=== PATIENT | male | born 1975 ===

== ENCOUNTER 2016-12-11 11:35 | Observation (INO) | payer OTHER ==
[2016-12-11 11:43] VITALS: BMI 32.8
[2016-12-11] MEDS ORDERED: Iohexol 240 (50 ml) PO ONE (12:39)
[2016-12-11] MEDS ORDERED: Iohexol 240 (50 ml) ONE (12:43)
[2016-12-11] MEDS ORDERED: Sodium Chloride 0.9% 1,000 ML IV SCH ×2 (12:45→13:00)
--- NOTE | 2016-12-11 12:45 | ED PDOC ---
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 denies: Fever, Chills , Diarrhea, Constipation Alleviating Factors: None Last Bowel Movement: Today (normal) Additional History Per: Patient <Shnaia Hector - Last Filed: 12/11/16 18:18> <Mary Nava - Last Filed: 12/11/16 19:07> Time Seen by Provider: 12/11/16 12:26 Chief Complaint (Nursing): Abdominal Pain Additional Complaint(s): 41 yo M with PMH of HTN and CKD on HD presents with c/o diffuse abdominal pain that began yesterday after eating a spicy meal. Pt states pain slowly progressed and then began to have N/V. 4 episodes of nonbloody nonbilious vomiting. No diarrhea. Last BM this morning - normal. Pt did not eat dinner last night due to pain and nausea. Denies blood in stool. Denies fever, chills, chest pain, SOB. No recent travel or ill contacts. Nephro: Dr. Julian Garrett HD schedule MWF (pt had HD yesterday) (Shania Hector) Supervising Attending Note - Attestation: I have personally seen and examined this patient.: Yes I have fully participated in the care of the patient.: Yes I have reviewed all pertinent clinical information: Yes <Mary Nava - Last Filed: 12/11/16 19:07> Past Medical History Reviewed: Historical Data, Nursing Documentation, Vital Signs - Medical History PMH: Depression, Diverticulitis (5years back), HTN, End Stage Renal Disease, Chronic Kidney Disease Denies: HIV - Surgical History Surgical History: Appendectomy (X3 B/O Complications) Other surgeries: laparotomy, colostomy and reversal - Family History Family History: States: Unknown Family Hx - Living Arrangements Living Arrangements: With Family <Shania Hector - Last Filed: 12/11/16 18:18> <Mary Nava F - Last Filed: 12/11/16 19:07> Vital Signs: Last Vital Signs Temp 98 F 12/11/16 11:42 Pulse 103 H 12/11/16 11:42 Resp BP 132/97 H 12/11/16 11:42 Pulse Ox 97 12/11/16 18:20 - Home Medications Home Medications: Ambulatory Orders Medication Instructions Recorded RX: Calcium Acetate [Phoslo] 3 tab PO TID #0 tab 05/13/16 RX: Escitalopram [Lexapro] 10 mg PO DAILY #0 tab 05/13/16 RX: Esomeprazole Magnesium [Nexium] 40 mg PO DAILY #7 capsule.dr 05/13/16 RX: Folic Acid 1 mg PO DAILY #0 tab 05/13/16 RX: Metoprolol Tartrate [Lopressor] 25 mg PO DAILY #0 tab 05/13/16 RX: Zolpidem [Ambien] 5 mg PO HS #0 tab 05/13/16 RX: amLODIPine [Norvasc] 5 mg PO DAILY #0 tab 05/13/16 RX: hydroCHLOROthiazide [Microzide] 12.5 mg PO BID #0 cap 05/13/16 - Allergies Allergies/Adverse Reactions: Allergies Allergy/AdvReac Type Severity Reaction Status Date / Time No Known Allergies Allergy Verified 11/28/14 17:02 Review of Systems Constitutional: Negative for: Fever, Chills Cardiovascular: Negative for: Chest Pain Respiratory: Negative for: Cough, Shortness of Breath Gastrointestinal: Positive for: Nausea, Vomiting, Abdominal Pain. Negative for : Diarrhea, Constipation, Hematochezia, Hematemesis Genitourinary Male: Negative for: Dysuria, Frequency, Hematuria <Shania Hector - Last Filed: 12/11/16 18:18> Physical Exam - Reviewed Nursing Documentation Reviewed: Yes Vital Signs Reviewed: Yes - Physical Exam Appears: Positive for: Non-toxic, Uncomfortable Head Exam: Positive for: NORMAL INSPECTION Skin: Positive for: Normal Color, Warm, Dry. Negative for: Diaphoresis Eye Exam: Positive for: Normal appearance Neck: Positive for: Normal, Painless ROM, Supple Cardiovascular/Chest: Positive for: Tachycardia. Negative for: Irregularly Irregular Respiratory: Positive for: Normal Breath Sounds Gastrointestinal/Abdominal: Positive for: Bowel Sounds (+in all quadrants), Soft , Tenderness (diffuse tenderness, with +Torres's sign), Guarding, Other (RLQ, LLQ and midline scars) Extremity: Positive for: Other (LUE with patent AV fistula (+ thrill)). Negative for: Pedal Edema, Calf Tenderness Neurologic/Psych: Positive for: Alert, Oriented <Shania Hector - Last Filed: 12/11/16 18:18> - Laboratory Results Result Diagrams: 12/11/16 13:10 12/11/16 13:10 - ECG O2 Sat by Pulse Oximetry: 97 <Shania Hector - Last Filed: 12/11/16 18:18> - Laboratory Results Result Diagrams: 12/11/16 13:10 12/11/16 13:10 - Physician Consult Information Physician Contacted: Dang Hermos[place] <Mary Nava - Last Filed: 12/11/16 19:07> - Progress ED Course And Treament: CBC CMP Lipase NS 250ml bolus Pepcid 20mg IV stat Zofran 4mg IV stat Morphine 2mg IV stat CT abd/pelvis with PO contrast only Reeval 5:15pm Pt reevaluated - states pain improved but still present, diffusely. Had 2 episodes of diarrhea, nonbloody. CT scan reviewed - Mechanical SBO as a result of right parasagittal ventral hernia containing a loop of small bowel. Spoke with Surgery senior analytic consultant - Dr. Gruber. Requested lactate level. residential program worker to come evaluate pt. 6:15pm residential program worker spoke with Dr. Gruber. Spoke to Hospitalist, Dr. Goff for admission. (Shania Hector) - Physician Consult Information Outcome Of Conversation: Will evaluate patient tomorrow. (Mary Nava) Medical Decision Making <Shania Hector - Last Filed: 12/11/16 18:18> <Mary Nava - Last Filed: 12/11/16 19:07> Medical Decision Makin yo with mechanical SBO. Admit to Hospitalist with Surgical consult. (Mary Nava) Disposition - Patient ED Disposition Is Patient to be Admitted: Yes - Disposition Disposition Time: 18:20 <Shania Hector - Last Filed: 12/11/16 18:18> <Mary Nava - Last Filed: 12/11/16 19:07> - Clinical Impression Clinical Impression: Small bowel obstruction - Disposition Condition: STABLE
[2016-12-11] MEDS ORDERED: Sodium Chloride 0.9% 250 ML IV SCH (13:00)
[2016-12-11 13:24] LABS: BASO # 0.1 K/uL (0.0-0.2); BASO % 0.5 % (0.0-2.0); EOS # 0.1 K/uL (0.0-0.7); EOS % 0.9 % (0.0-4.0); HEMATOCRIT 44.3 % (35.0-51.0); LYMPH # 1.2 K/uL (1.0-4.3); LYMPH % 9.1 % (20.0-40.0); MEAN CORPUSCULAR HEMOGLOBIN 31.3 pg (27.0-31.0); MEAN PLATELET VOLUME 9.4 fl (7.2-11.7); MONO # 1.1 K/uL (0.0-0.8); MONO % 8.4 % (0.0-10.0); NEUT # 10.5 K/uL (1.8-7.0); NEUT % 81.1 % (50.0-75.0); NRBC % 0.1 % (0.0-0.0); PLATELET COUNT 249 K/uL (130-400); RED CELL DISTRIBUTION WIDTH 15.3 % (11.5-14.5); WHITE BLOOD COUNT 12.9 K/uL (4.8-10.8)
[2016-12-11 13:37] LABS: ALB/GLOB RATIO 1.1 (1.0-2.1); BILIRUBIN,TOTAL 1.3 mg/dl (0.2-1.3); CALCIUM 10.8 mg/dL (8.4-10.2); TOTAL PROTEIN 10.3 G/DL (6.3-8.2)
[2016-12-11 14:32] LABS: EOSINOPHIL 1 % (0-7); NEUTROPHIL 82 % (42-75); TOTAL CELLS COUNTED 100
--- NOTE | 2016-12-11 16:53 | CT ---
PROCEDURE: CT Abdomen and Pelvis without intravenous contrast HISTORY: abdominal pain, N/V, hx of multiple abdominal surg COMPARISON: 12/05/2019 52 TECHNIQUE: Without contrast.. Contrast Dose: 0 Radiation dose: Total exam DLP = 1059.05 mGy-cm. This CT exam was performed using one or more of the following dose reduction techniques: Automated exposure control, adjustment of the mA and/or kV according to patient size, and/or use of iterative reconstruction technique. FINDINGS: LOWER THORAX: Unremarkable. LIVER: Mild hepatomegaly. Smooth contour. . Diffusely diminished attenuation consistent with fatty infiltration. No mass. No biliary dilatation. GALLBLADDER AND BILE DUCTS: Unremarkable. PANCREAS: Unremarkable. No gross lesion or ductal dilatation. SPLEEN: Unremarkable. ADRENALS: Unremarkable. No mass. KIDNEYS AND URETERS: Bilaterally atrophic kidneys consistent with chronic renal failure. VASCULATURE: Unremarkable. No aortic aneurysm. BOWEL: There is mechanical small-bowel obstruction. Point of obstruction corresponds to a right parasagittal ventral abdominal hernia containing a loop of small bowel. . There is change in caliber of the small bowel at the level of this herniation. The patient is status post partial colectomy with rectosigmoid anastomosis. APPENDIX: Not positively identified. PERITONEUM: No ascites. In addition to the right parasagittal hernia noted above, there is a small supraumbilical ventral hernia containing only mesenteric fat. LYMPH NODES: Unremarkable. No enlarged lymph nodes. BLADDER: Nondistended REPRODUCTIVE: Normal prostate BONES: No acute fracture. OTHER FINDINGS: None. IMPRESSION: Mechanical small bowel obstruction as a result of right parasagittal ventral hernia containing a loop of small bowel. Additional minor findings as above.
--- NOTE | 2016-12-11 18:24 | CP.PCM.CON ---
<Babar Saavedra - Last Filed: 12/11/16 18:19> History of Present Illness - History of Present Illness History of Present Illness: General Surgery Consult Note for Dr. Gruber CC: Abdominal Pain X 1 day HPI: This is a 41M with a PH of HTN, ESRD and multiple abdominal surguries who presented to the ED with abdominal pain. The patient reports that yesterday he had a spicy meal and he started having epigastric pain, which was a 7/10. he reports 4 episodes of bilious emesis. This morning he reports that he had a non bloody bowel movement and two episodes of bloody diarrhea since he came to the ED. He denies any fevers, chills, chest pain, SOB, nausea, or vomiting. PMH: Ruptured appendicitis/peritonitis at age 16, colovesicular fistula (~2012) , diverticulosis, ESRD on HD, HTN PSH: appendectomy, laparotomy with lavage following episode of ruptured appendicitis, left hemicolectomy with ostomy placement, reversal of ostomy with reanastamosis, Left AVF creation ALL: NKDA Social: Denies ETOH, Tobacco, Drugs Review of Systems - Constitutional Constitutional: absent: Anorexia, Chills - EENT Eyes: absent: Blind Spots, Blurred Vision Ears: absent: Decreased Hearing, Ear Discharge - Cardiovascular Cardiovascular: absent: Chest Pain, Dyspnea - Respiratory Respiratory: absent: Dyspnea, Dyspnea on Exertion - Gastrointestinal Gastrointestinal: Abdominal Pain, Diarrhea. absent: Nausea, Vomiting Past Patient History - Infectious Disease Hx of Infectious Diseases: None - Past Medical History & Family History Past Medical History?: Yes - Past Social History Smoking Status: Light Smoker < 10 Cigarettes Daily - CARDIAC Hx Hypertension: Yes - PULMONARY Hx Respiratory Disorders: No - NEUROLOGICAL Hx Neurological Disorder: No - HEENT Hx HEENT Problems: No - RENAL Hx Chronic Kidney Disease: Yes - ENDOCRINE/METABOLIC Hx Endocrine Disorders: No - HEMATOLOGICAL/ONCOLOGICAL Hx Human Immunodeficiency Virus (HIV): No - INTEGUMENTARY Hx Dermatological Problems: No - MUSCULOSKELETAL/RHEUMATOLOGICAL Hx Musculoskeletal Disorders: No Hx Falls: No - GASTROINTESTINAL Hx Diverticulitis: Yes (5years back) - GENITOURINARY/GYNECOLOGICAL Hx Genitourinary Disorders: No - PSYCHIATRIC Hx Depression: Yes - SURGICAL HISTORY Hx Appendectomy: Yes (X3 B/O Complications) - ANESTHESIA Hx Anesthesia: Yes Hx Anesthesia Reactions: No Meds Allergies/Adverse Reactions: Allergies Allergy/AdvReac Type Severity Reaction Status Date / Time No Known Allergies Allergy Verified 11/28/14 17:02 - Medications Medications: Current Medications Sodium Chloride (Sodium Chloride 0.9%) 1,000 mls @ 250 mls/hr IV .Q4H ESAU Stop: 12/12/16 12:59 Last Admin: 12/11/16 13:00 Dose: 250 mls/hr Physical Exam - Constitutional Appears: Non-toxic, No Acute Distress - Head Exam Head Exam: ATRAUMATIC, NORMOCEPHALIC - Eye Exam Eye Exam: EOMI, Normal appearance - ENT Exam ENT Exam: Mucous Membranes Moist, Normal Exam - Respiratory Exam Respiratory Exam: NORMAL BREATHING PATTERN - Cardiovascular Exam Cardiovascular Exam: REGULAR RHYTHM - GI/Abdominal Exam GI & Abdominal Exam: Hernia, Soft. absent: Distended, Firm, Guarding - Extremities Exam Extremities exam: Positive for: normal inspection - Neurological Exam Neurological exam: Alert, Oriented x3 - Psychiatric Exam Psychiatric exam: Normal Affect, Normal Mood - Skin Skin Exam: Dry, Intact, Normal Color Results - Vital Signs Recent Vital Signs: Last Vital Signs Temp 98 F 12/11/16 11:42 Pulse 103 H 12/11/16 11:42 Resp BP 132/97 H 12/11/16 11:42 Pulse Ox 97 12/11/16 18:07 - Labs Result Diagrams: 12/11/16 13:10 12/11/16 13:10 Labs: Laboratory Results - last 24 hr 12/11/16 12/11/16 13:10 13:10 WBC 12.9 H RBC 4.82 Hgb 15.1 D Hct 44.3 MCV 92.0 MCH 31.3 H MCHC 34.0 RDW 15.3 H Plt Count 249 MPV 9.4 Neut % (Auto) 81.1 H Lymph % (Auto) 9.1 L [place] % (Auto) 8.4 Eos % (Auto) 0.9 Baso % (Auto) 0.5 Neut # 10.5 H Lymph # 1.2 [place] # 1.1 H Eos # 0.1 Baso # 0.1 Neutrophils % (Manual) 82 H Band Neutrophils % 3 H Lymphocytes % (Manual) 9 L Monocytes % (Manual) 5 Eosinophils % (Manual) 1 Toxic Granulation Present Platelet Estimate Normal Anisocytosis (manual) Slight Tear Drop Cells Slight Sodium 141 Potassium 5.0 Chloride 93 L Carbon Dioxide 25 Anion Gap 28 H BUN 46 H Creatinine 9.6 H* Est GFR ( Amer) 7 Est GFR (Non-Af Amer) 6 Random Glucose 98 Calcium 10.8 H Total Bilirubin 1.3 AST 39 ALT 30 Alkaline Phosphatase 97 Total Protein 10.3 H Albumin 5.3 H D Globulin 5.0 H Albumin/Globulin Ratio 1.1 Lipase 265 - Imaging and Cardiology CT scan - abdomen Status: Image reviewed by me, Report reviewed by me Assessment & Plan - Assessment and Plan (Free Text) Assessment: This is a 41M with multiple comorbidites and multiple abdominal surgeries who presented with abdominal pain CT abdomen: mechanical bowel obstruction as a result of ventral hernia containing a loop of bowel NPO IVF NGT if nausea and vomiting resumes Serial abdominal exams Continue medical managment per primary team Discussed with Dr. Yasmani Saavedra PGY-1 <Bigg Gruber B - Last Filed: 12/12/16 22:17> Results - Vital Signs Recent Vital Signs: Last Vital Signs Temp 98.4 F 12/12/16 07:46 Pulse 73 12/12/16 08:47 Resp 20 12/12/16 07:46 BP 102/65 12/12/16 08:47 Pulse Ox 95 12/12/16 07:46 - Labs Result Diagrams: 12/12/16 10:20 12/12/16 10:20 Labs: Laboratory Results - last 24 hr 12/12/16 12/12/16 10:20 10:20 WBC 8.6 RBC 3.97 L Hgb 12.5 D Hct 37.0 MCV 93.2 MCH 31.4 H MCHC 33.7 RDW 15.3 H Plt Count 211 MPV 9.1 Neut % (Auto) 67.2 Lymph % (Auto) 19.8 L [place] % (Auto) 10.8 H Eos % (Auto) 1.9 Baso % (Auto) 0.3 Neut # 5.8 Lymph # 1.7 [place] # 0.9 H Eos # 0.2 Baso # 0.0 Sodium 139 Potassium 5.8 H Chloride 97 L Carbon Dioxide 24 Anion Gap 24 H BUN 59 H Creatinine 11.0 H* Est GFR ( Amer) 6 Est GFR (Non-Af Amer) 5 Random Glucose 84 Calcium 8.9 Total Bilirubin 1.1 AST 28 ALT 31 Alkaline Phosphatase 68 Total Protein 7.8 Albumin 4.5 Globulin 3.3 Albumin/Globulin Ratio 1.4 Attending/Attestation - Attestation I have personally seen and examined this patient.: Yes I have fully participated in the care of the patient.: Yes I have reviewed all pertinent clinical information: Yes Notes (Text): 12/12/16 22:16 Pt was seen and examined at bedside on 12/12/16 Agree with above note and assessment. Pt with incisional hernia and Diarrhea Pt can be f.u as out pt Plan d.w pt in detail
--- NOTE | 2016-12-11 20:56 | CP.PCM.HP ---
History of Present Illness - History of Present Illness History of Present Illness: 41 y/o male with PMH of HTN, ESRD on HD with history of multiple abdominal surgeries presented to the ED with abdominal pain for 1 day. As per patient his pain started half n hour after eating something spicy , located over epigastric area and shifting to RUQ, progressively getting worse, associated with multiple episodes of nausea and non bilious emesis . Patient came to ER for evaluation where CT abdomen showed intestinal obstruction. He had 2 soft bowel movements in Er at present feeling better. Surgery evaluated patient and recommended observation overnight for SBO Patient denies any CP, SOB, palpitations, PND, orthopnea. Still urinates , small amount and denies any dysuria. Last HD was yesterday . Allergies ; NKDA PMH ; HTN, ESRD on HD, depression,diverticulitis Medications; Metoprolol, Norvasc, Lexapro, renagel Surgery ; Ruptured appendicitis/peritonitis at age 16 with appendectomy , colovesicular fistula (~2012) with hemicolectomy with ostomy and reversal of ostomy with re anastamosis , left AVF Family history ;both parents sister and brother have HTN, DM Socila history ; smokes 4 cigg/day. 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, denies ETOH or annetta abuse ROS ; 14 point review of system negative except above Present on Admission - Present on Admission Any Indicators Present on Admission: No Review of Systems - Review of Systems All systems: reviewed and no additional remarkable complaints except Past Patient History - Infectious Disease Hx of Infectious Diseases: None - Tetanus Immunizations Tetanus Immunization: Unknown - Past Medical History & Family History Past Medical History?: Yes Past Family History: Reviewed and not pertinent - Past Social History Smoking Status: Light Smoker < 10 Cigarettes Daily Chewing Tobacco Use: No Cigar Use: No Alcohol: None Drugs: Denies Home Situation {Lives}: With Family Domestic Violence: Negative - CARDIAC Hx Hypertension: Yes - PULMONARY Hx Respiratory Disorders: No - NEUROLOGICAL Hx Neurological Disorder: No - HEENT Hx HEENT Problems: No - RENAL Hx Chronic Kidney Disease: Yes - ENDOCRINE/METABOLIC Hx Endocrine Disorders: No - HEMATOLOGICAL/ONCOLOGICAL Hx Human Immunodeficiency Virus (HIV): No - INTEGUMENTARY Hx Dermatological Problems: No - MUSCULOSKELETAL/RHEUMATOLOGICAL Hx Musculoskeletal Disorders: No Hx Falls: No - GASTROINTESTINAL Hx Diverticulitis: Yes (5years back) - GENITOURINARY/GYNECOLOGICAL Hx Genitourinary Disorders: No - PSYCHIATRIC Hx Depression: Yes - SURGICAL HISTORY Hx Appendectomy: Yes (X3 B/O Complications) - ANESTHESIA Hx Anesthesia: Yes Hx Anesthesia Reactions: No Meds Allergies/Adverse Reactions: Allergies Allergy/AdvReac Type Severity Reaction Status Date / Time No Known Allergies Allergy Verified 11/28/14 17:02 Physical Exam - Constitutional Appears: Non-toxic, No Acute Distress - Head Exam Head Exam: ATRAUMATIC, NORMAL INSPECTION, NORMOCEPHALIC - Eye Exam Eye Exam: EOMI, Normal appearance, PERRL Pupil Exam: NORMAL ACCOMODATION, PERRL - ENT Exam ENT Exam: Mucous Membranes Moist, Normal Exam - Neck Exam Neck exam: Positive for: Full Rom, Normal Inspection - Respiratory Exam Respiratory Exam: Clear to Auscultation Bilateral, NORMAL BREATHING PATTERN. absent: Rales, Rhonchi, Wheezes - Cardiovascular Exam Cardiovascular Exam: REGULAR RHYTHM, RRR, +S1, +S2. absent: JVD - GI/Abdominal Exam GI & Abdominal Exam: Normal Bowel Sounds, Soft. absent: Distended, Guarding, Rebound, Tenderness Additional comments: multiple scars - Rectal Exam Rectal Exam: Deferred - Extremities Exam Extremities exam: Positive for: normal capillary refill, normal inspection, pedal pulses present. Negative for: calf tenderness, pedal edema - Back Exam Back exam: NORMAL INSPECTION - Neurological Exam Neurological exam: Alert, CN II-XII Intact, Oriented x3, Reflexes Normal - Psychiatric Exam Psychiatric exam: Normal Affect, Normal Mood - Skin Skin Exam: Dry, Intact, Normal Color, Warm Results - Vital Signs Recent Vital Signs: Last Vital Signs Temp 98.2 F 12/11/16 19:49 Pulse 98 H 12/11/16 19:49 Resp 18 12/11/16 19:49 BP 123/72 12/11/16 19:49 Pulse Ox 99 12/11/16 19:49 - Labs Result Diagrams: 12/11/16 13:10 12/11/16 13:10 - Imaging and Cardiology CT scan - abdomen Additional comment: Mechanical small bowel obstruction as a result of right parasagittal ventral hernia containing a loop of small bowel. Additional minor findings as above. Assessment & Plan - Assessment and Plan (Free Text) Assessment: 41 y/o male with PMH of HTN, ESRD on HD with history of multiple abdominal surgeries presented to the ED with abdominal pain for 1 day. As per patient his pain started half n hour after eating something spicy , located over epigastric area and shifting to RUQ, progressively getting worse, associated with multiple episodes of nausea and non bilious emesis . Patient came to ER for evaluation where CT abdomen showed intestinal obstruction. He had 2 soft bowel movements in Er at present feeling better. Surgery evaluated patient and recommended observation overnight for SBO 1. Abdominal pain - most likely secondary to SBO CT abdomen showed Mechanical small bowel obstruction as a result of right parasagittal ventral hernia containing a loop of small bowel. Additional minor findings as above. will place patient under observation in med-surg Start IVF , pain management PRN Start Liquid diet Surgery consulted in ER . will observe overnight 2. ESRD on HD Last HD yesterday . Patient is due for HD tomorrow Nephrology is Dr. Garrett on Renagel 3. Hypertension Resume home meds Metoprolol and nOrvasc 4. Depression On Lexapro 5. DVT prophylaxis SCD
[2016-12-11] MEDS ORDERED: Pneumococcal 23-Valent Vaccine IM ONE (21:17)
[2016-12-11] MEDS: Sodium Chloride 0.9% 1,000 ML IV SCH (22:40)
[2016-12-12 07:47] VITALS: RESP 20; TEMP 98.4; O2SAT 95
--- NOTE | 2016-12-12 08:31 | CP.PCM.PN ---
<Shaunna Blankenship - Last Filed: 12/12/16 08:29> Subjective - Date & Time of Evaluation Date of Evaluation: 12/12/16 Time of Evaluation: 08:29 - Subjective Subjective: General Surgery - Dr. Gruber Pt S&EDonato SHIN. Pt states his pain is gone now and he is feeling better. He is tolerating liquid diet and having diarrhea. No N/V, F/C, SOB/CP. Objective - Vital Signs/Intake and Output Vital Signs (last 24 hours): Temp Pulse Resp BP Pulse Ox 98.4 F 71 20 93/58 L 95 12/12/16 07:46 12/12/16 07:46 12/12/16 07:46 12/12/16 07:46 12/12/16 07:46 - Medications Medications: Current Medications Acetaminophen (Tylenol 325mg Tab) 650 mg PO Q6 PRN PRN Reason: Pain, Mild (1-3) Acetaminophen (Tylenol 325mg Tab) 650 mg PO Q6 PRN PRN Reason: Fever >100.4 F Amlodipine Besylate (Norvasc) 5 mg PO DAILY [facility] Escitalopram Oxalate (Lexapro) 5 mg PO DAILY [facility] Sodium Chloride (Sodium Chloride 0.9%) 1,000 mls @ 250 mls/hr IV .Q4H [facility] Stop: 12/12/16 12:59 Last Admin: 12/11/16 13:00 Dose: 250 mls/hr Sodium Chloride (Sodium Chloride 0.9%) 1,000 mls @ 100 mls/hr IV .Q10H [facility] Last Admin: 12/11/16 22:40 Dose: 100 mls/hr Metoprolol Tartrate (Lopressor) 25 mg PO DAILY [facility] Morphine Sulfate (Morphine) 1 mg IVP Q6 PRN PRN Reason: Pain, severe (8-10) Ondansetron HCl (Zofran Inj) 4 mg IVP Q6 PRN PRN Reason: Nausea/Vomiting Pantoprazole Sodium (Protonix Ec Tab) 40 mg PO DAILY [facility] Sevelamer HCl (Renagel) 2,400 mg PO TID [facility] - Constitutional Appears: No Acute Distress - Head Exam Head Exam: ATRAUMATIC, NORMAL INSPECTION, NORMOCEPHALIC - Respiratory Exam Respiratory Exam: NORMAL BREATHING PATTERN. absent: Respiratory Distress - Cardiovascular Exam Cardiovascular Exam: REGULAR RHYTHM - GI/Abdominal Exam GI & Abdominal Exam: Soft, Hernia (small defect, R paramedian near appendectomy scar). absent: Distended, Guarding, Rigid, Tenderness, Rebound - Neurological Exam Neurological Exam: Alert, Oriented x3 - Psychiatric Exam Psychiatric exam: Normal Affect, Normal Mood - Skin Skin Exam: Dry, Intact Assessment and Plan - Assessment and Plan (Free Text) Assessment: 41M w/ HTN, ESRD, and hx of multiple abdominal surgeries, who presented with SBO caused by ventral hernia, reduced -Advance diet as tolerated -Encourage OOB/Ambulation -No acute surgical plans -DW Dr. Yasmani Blankenship PGY2 <Bigg Gruber - Last Filed: 12/12/16 22:22> Objective - Vital Signs/Intake and Output Vital Signs (last 24 hours): Temp Pulse Resp BP Pulse Ox 98.4 F 73 20 102/65 95 12/12/16 07:46 12/12/16 08:47 12/12/16 07:46 12/12/16 08:47 12/12/16 07:46 - Labs Labs: 12/12/16 10:20 12/12/16 10:20 Attending/Attestation - Attestation I have personally seen and examined this patient.: Yes I have fully participated in the care of the patient.: Yes I have reviewed all pertinent clinical information, including history, physical exam and plan: Yes Notes (Text): 12/12/16 22:22 Pt was seen and examined at bedside on 12/12/16 Agree with above note and assessment. Pt with reducible Incisional hernia f.U as out pt
[2016-12-12] MEDS: Sodium Chloride 0.9% 1,000 ML IV SCH (08:38)
[2016-12-12 08:48] VITALS: BP 102/65; PULSE 73
[2016-12-12] MEDS ORDERED: Pantoprazole 40 mg EC Tab PO SCH (09:00)
[2016-12-12 10:34] LABS: BASO % 0.3 % (0.0-2.0); EOS # 0.2 K/uL (0.0-0.7); EOS % 1.9 % (0.0-4.0); LYMPH # 1.7 K/uL (1.0-4.3); LYMPH % 19.8 % (20.0-40.0); MEAN CELL VOLUME 93.2 fl (80.0-94.0); MEAN CORPUSCULAR HEMOGLOBIN 31.4 pg (27.0-31.0); MEAN CORPUSCULAR HGB CONC 33.7 g/dL (33.0-37.0); MEAN PLATELET VOLUME 9.1 fl (7.2-11.7); MONO # 0.9 K/uL (0.0-0.8); MONO % 10.8 % (0.0-10.0); NEUT # 5.8 K/uL (1.8-7.0); NEUT % 67.2 % (50.0-75.0); NRBC % 0.1 % (0.0-0.0); RED CELL DISTRIBUTION WIDTH 15.3 % (11.5-14.5); WHITE BLOOD COUNT 8.6 K/uL (4.8-10.8)
--- NOTE | 2016-12-12 10:44 | CP.PCM.DIS ---
Provider - Provider Date of Admission: 12/11/16 18:43 Attending physician: Sabra Goff MD Consults: surgery consult Time Spent in preparation of Discharge (in minutes): 15 Hospital Course - Lab Results Lab Results: Most Recent Lab Values WBC 8.6 K/uL (4.8-10.8) 12/12/16 10:20 RBC 3.97 Mil/uL (4.40-5.90) L 12/12/16 10:20 Hgb 12.5 g/dL (12.0-18.0) D 12/12/16 10:20 Hct 37.0 % (35.0-51.0) 12/12/16 10:20 MCV 93.2 fl (80.0-94.0) 12/12/16 10:20 MCH 31.4 pg (27.0-31.0) H 12/12/16 10:20 MCHC 33.7 g/dL (33.0-37.0) 12/12/16 10:20 RDW 15.3 % (11.5-14.5) H 12/12/16 10:20 Plt Count 211 K/uL (130-400) 12/12/16 10:20 MPV 9.1 fl (7.2-11.7) 12/12/16 10:20 Neut % (Auto) 67.2 % (50.0-75.0) 12/12/16 10:20 Lymph % (Auto) 19.8 % (20.0-40.0) L 12/12/16 10:20 [place] % (Auto) 10.8 % (0.0-10.0) H 12/12/16 10:20 Eos % (Auto) 1.9 % (0.0-4.0) 12/12/16 10:20 Baso % (Auto) 0.3 % (0.0-2.0) 12/12/16 10:20 Neut # 5.8 K/uL (1.8-7.0) 12/12/16 10:20 Lymph # 1.7 K/uL (1.0-4.3) 12/12/16 10:20 [place] # 0.9 K/uL (0.0-0.8) H 12/12/16 10:20 Eos # 0.2 K/uL (0.0-0.7) 12/12/16 10:20 Baso # 0.0 K/uL (0.0-0.2) 12/12/16 10:20 Neutrophils % (Manual) 82 % (42-75) H 12/11/16 13:10 Band Neutrophils % 3 % (0-2) H 12/11/16 13:10 Lymphocytes % (Manual) 9 % (20-50) L 12/11/16 13:10 Monocytes % (Manual) 5 % (0-10) 12/11/16 13:10 Eosinophils % (Manual) 1 % (0-7) 12/11/16 13:10 Toxic Granulation Present 12/11/16 13:10 Platelet Estimate Normal (NORMAL) 12/11/16 13:10 Anisocytosis (manual) Slight 12/11/16 13:10 Tear Drop Cells Slight 12/11/16 13:10 Sodium 141 mmol/l (132-148) 12/11/16 13:10 Potassium 5.0 MMOL/L (3.6-5.0) 12/11/16 13:10 Chloride 93 mmol/L (98-107) L 12/11/16 13:10 Carbon Dioxide 25 mmol/L (22-30) 12/11/16 13:10 Anion Gap 28 (10-20) H 12/11/16 13:10 BUN 46 mg/dl (9-20) H 12/11/16 13:10 Creatinine 9.6 mg/dL (0.8-1.5) H* 12/11/16 13:10 Est GFR ( Amer) 7 12/11/16 13:10 Est GFR (Non-Af Amer) 6 12/11/16 13:10 Random Glucose 98 mg/dL (75-110) 12/11/16 13:10 Lactic Acid 1.9 MMOL/L (0.7-2.1) 12/11/16 17:55 Calcium 10.8 mg/dL (8.4-10.2) H 12/11/16 13:10 Total Bilirubin 1.3 mg/dl (0.2-1.3) 12/11/16 13:10 AST 39 U/L (17-59) 12/11/16 13:10 ALT 30 U/L (21-72) 12/11/16 13:10 Alkaline Phosphatase 97 U/L (38-126) 12/11/16 13:10 Total Protein 10.3 G/DL (6.3-8.2) H 12/11/16 13:10 Albumin 5.3 g/dL (3.5-5.0) H D 12/11/16 13:10 Globulin 5.0 gm/dL (2.2-3.9) H 12/11/16 13:10 Albumin/Globulin Ratio 1.1 (1.0-2.1) 12/11/16 13:10 Lipase 265 U/L (23-300) 12/11/16 13:10 - Hospital Course Hospital Course: 41 y/o male with PMH of HTN, ESRD on HD with history of multiple abdominal surgeries presented to the ED with abdominal pain for 1 day. As per patient his pain started half n hour after eating something spicy , located over epigastric area and shifting to RUQ, progressively getting worse, associated with multiple episodes of nausea and non bilious emesis . Patient came to ER for evaluation where CT abdomen showed Mechanical small bowel obstruction as a result of right parasagittal ventral hernia containing a loop of small bowel.Surgery was consulted . Patient started on IVF and pain management. He started having bowel movements, passing flatus,tolerating liquid diet. Apparently the bowel obstruction resolved. Will advance diet to renal diet and discharge patient home. Follow up with HD as scheduled Follow up with PMD Follow up[facility]. Return to hospital if symptoms retyurn 1. Abdominal pain - most likely secondary to SBO CT abdomen showed Mechanical small bowel obstruction as a result of right parasagittal ventral hernia containing a loop of small bowel. Additional minor findings as above. resolved 2. ESRD on HD Patient is due for HD today Nephrology is Dr. Garrett on [facility] 3. Hypertension controlled Resumed home meds Metoprolol and nOrvasc 4. Depression On Lexapro 5. DVT prophylaxis SCD Discharge Exam - Head Exam Head Exam: ATRAUMATIC, NORMAL INSPECTION, NORMOCEPHALIC - Eye Exam Eye Exam: EOMI, Normal appearance, PERRL Pupil Exam: NORMAL ACCOMODATION - ENT Exam ENT Exam: Mucous Membranes Moist, Normal Exam - Neck Exam Neck exam: Full Rom, Normal Inspection - Respiratory Exam Respiratory Exam: Clear to PA & Lateral, NORMAL BREATHING PATTERN. absent: Rales, Rhonchi, Wheezes - Cardiovascular Exam Cardiovascular Exam: REGULAR RHYTHM, RRR, +S1, +S2. absent: JVD - GI/Abdominal Exam GI & Abdominal Exam: Normal Bowel Sounds, Soft. absent: Distended, Guarding, Rebound, Tenderness Additional comments: multiple scars - Rectal Exam Rectal Exam: Deferred - Extremities Exam Extremities exam: normal capillary refill, normal inspection, pedal pulses present Additional comments: LUE AVF PRESENT - Back Exam Back exam: NORMAL INSPECTION - Neurological Exam Neurological exam: Alert, CN II-XII Intact, Oriented x3, Reflexes Normal - Psychiatric Exam Psychiatric exam: Normal Affect, Normal Mood - Skin Skin Exam: Dry, Intact, Normal Color, Warm Discharge Plan - Follow Up Plan Condition: STABLE Disposition: HOME/ ROUTINE Patient education suggested?: Yes Additional Instructions: fOLLOW UP WITH HD SCHEDULED fOLLOW UP WITH PMD/CFH
[2016-12-12 10:50] LABS: ALB/GLOB RATIO 1.4 (1.0-2.1); BILIRUBIN,TOTAL 1.1 mg/dl (0.2-1.3); CALCIUM 8.9 mg/dL (8.4-10.2); POTASSIUM 5.8 MMOL/L (3.6-5.0); TOTAL PROTEIN 7.8 G/DL (6.3-8.2)
--- NOTE | 2016-12-12 12:04 | CP.PCM.CON ---
History of Present Illness - History of Present Illness History of Present Illness: Nephrology note Pt is a ESRD MWF at [facility], well known to me was admitted with SBO, now better, tolerating diet, had BM and being discharged home now he will go to dialysis unit today for his routine HD he was examined, looks comfortable stable vitals clear lung, no edema. normal s1s2 abdomen soft non tender if d/c gets postponed for any reason, please let me know then will plan for his dialysis here today Thanks Dr Reddy Barker [phone] Past Patient History - Infectious Disease Hx of Infectious Diseases: None - Tetanus Immunizations Tetanus Immunization: Unknown - Past Medical History & Family History Past Medical History?: Yes - Past Social History Smoking Status: Light Smoker < 10 Cigarettes Daily - CARDIAC Hx Cardiac Disorders: Yes Hx Angina: No Hx Atrial Fibrillation: No Hx Cardia Arrhythmia: No Hx Circulatory Problems: No Hx Congestive Heart Failure: No Hx Heart Attack: No Hx Heart Murmur: No Hx Heart Transplant: No Hx Hypercholesterolemia: No Hx Hypertension: Yes Hx Hypotension: No Hx Internal Defibrillator: No Hx Mitral Valve Prolapse: No Hx Pacemaker: No Hx Peripheral Edema: No Hx Peripheral Vascular Disease: No - PULMONARY Hx Respiratory Disorders: No - NEUROLOGICAL Hx Neurological Disorder: No - HEENT Hx HEENT Problems: No - RENAL Hx Chronic Kidney Disease: Yes Hx Dialysis: Yes Type of Dialysis Access: Hemo Date of Last Dialysis Treatment: 12/10/16 Hx Kidney Stones: No Hx Neurogenic Bladder: No Hx Pyelonephritis: No Hx Renal (Kidney) Cancer: No Hx Renal Failure: No Other/Comment: ESRD - ENDOCRINE/METABOLIC Hx Endocrine Disorders: No - HEMATOLOGICAL/ONCOLOGICAL Hx Blood Disorders: No Hx Human Immunodeficiency Virus (HIV): No - INTEGUMENTARY Hx Dermatological Problems: No - MUSCULOSKELETAL/RHEUMATOLOGICAL Hx Falls: No - GASTROINTESTINAL Hx Gastrointestinal Disorders: Yes Hx Bowel Surgery: Yes Hx Clostridium Difficile: No Hx Colitis: No Hx Diverticulitis: Yes (5years back) Hx Vomiting: No Other/Comment: Peritonitis - GENITOURINARY/GYNECOLOGICAL Hx Genitourinary Disorders: No - PSYCHIATRIC Hx Substance Use: No - SURGICAL HISTORY Hx Appendectomy: Yes (X3 B/O Complications) - ANESTHESIA Hx Anesthesia: Yes Hx Anesthesia Reactions: No Hx Malignant Hyperthermia: No Has any member of the family had a problem w/ anesthesia?: No Meds Allergies/Adverse Reactions: Allergies Allergy/AdvReac Type Severity Reaction Status Date / Time No Known Allergies Allergy Verified 11/28/14 17:02 - Medications Medications: Current Medications Acetaminophen (Tylenol 325mg Tab) 650 mg PO Q6 PRN PRN Reason: Pain, Mild (1-3) Acetaminophen (Tylenol 325mg Tab) 650 mg PO Q6 PRN PRN Reason: Fever >100.4 F Amlodipine Besylate (Norvasc) 5 mg PO DAILY [facility] Last Admin: 12/12/16 08:46 Dose: Not Given Escitalopram Oxalate (Lexapro) 5 mg PO DAILY [facility] Last Admin: 12/12/16 08:35 Dose: 5 mg Sodium Chloride (Sodium Chloride 0.9%) 1,000 mls @ 250 mls/hr IV .Q4H [facility] Stop: 12/12/16 12:59 Last Admin: 12/11/16 13:00 Dose: 250 mls/hr Sodium Chloride (Sodium Chloride 0.9%) 1,000 mls @ 100 mls/hr IV .Q10H [facility] Last Admin: 12/12/16 08:38 Dose: 100 mls/hr Metoprolol Tartrate (Lopressor) 25 mg PO DAILY [facility] Last Admin: 12/12/16 08:47 Dose: 25 mg Morphine Sulfate (Morphine) 1 mg IVP Q6 PRN PRN Reason: Pain, severe (8-10) Ondansetron HCl (Zofran Inj) 4 mg IVP Q6 PRN PRN Reason: Nausea/Vomiting Pantoprazole Sodium (Protonix Ec Tab) 40 mg PO DAILY [facility] Last Admin: 12/12/16 10:56 Dose: 40 mg Sevelamer HCl ([place]el) 2,400 mg PO TID [facility] Last Admin: 12/12/16 10:29 Dose: Not Given Results - Vital Signs Recent Vital Signs: Last Vital Signs Temp 98.4 F 12/12/16 07:46 Pulse 73 12/12/16 08:47 Resp 20 12/12/16 07:46 BP 102/65 12/12/16 08:47 Pulse Ox 95 12/12/16 07:46 - Labs Result Diagrams: 12/12/16 10:20 12/12/16 10:20 Labs: Laboratory Results - last 24 hr 12/12/16 12/12/16 10:20 10:20 WBC 8.6 RBC 3.97 L Hgb 12.5 D Hct 37.0 MCV 93.2 MCH 31.4 H MCHC 33.7 RDW 15.3 H Plt Count 211 MPV 9.1 Neut % (Auto) 67.2 Lymph % (Auto) 19.8 L [place] % (Auto) 10.8 H Eos % (Auto) 1.9 Baso % (Auto) 0.3 Neut # 5.8 Lymph # 1.7 [place] # 0.9 H Eos # 0.2 Baso # 0.0 Sodium 139 Potassium 5.8 H Chloride 97 L Carbon Dioxide 24 Anion Gap 24 H BUN 59 H Creatinine 11.0 H* Est GFR ( Amer) 6 Est GFR (Non-Af Amer) 5 Random Glucose 84 Calcium 8.9 Total Bilirubin 1.1 AST 28 ALT 31 Alkaline Phosphatase 68 Total Protein 7.8 Albumin 4.5 Globulin 3.3 Albumin/Globulin Ratio 1.4
== END 2016-12-12 13:38 | disposition home or self-care (01) ==
LOC: H.ER 11:35 → INTOOBSV 18:43 → H.ERHOLD 18:43 → H.MEDSURG1 20:30
PROVIDERS: ADMIT Hospitalist; ATTEND Hospitalist
DX: K43.0 Incisional hernia with obstruction, without gangrene (principal); I12.0 Hypertensive chronic kidney disease with stage 5 chronic kidney disease or end stage renal disease; N18.6 End stage renal disease; Z99.2 Dependence on renal dialysis; F32.9 Major depressive disorder, single episode, unspecified; F17.210 Nicotine dependence, cigarettes, uncomplicated